=== PATIENT | female | born 2000 | race African-American/Black ===

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

== ENCOUNTER 2021-04-06 07:20 | Emergency (ER) | payer SELFPAY ==
[~2021-04-06] VITALS: Ht 157.5 cm; Wt 57.4 kg
[~2021-04-06 07:20] MED LIST: CIPR500T94 PO; NAPR-514 PO; NITR100C62 PO; OXYC1TAB15 PO
[2021-04-06 09:02] LABS: U PREG PATIENT POSITIVE (NEG)
[2021-04-06 09:04] LABS: BILIRUBIN,URINE NEGATIVE (NEG); CLARITY,URINE CLEAR; COLOR,URINE YELLOW; NITRITE,URINE NEGATIVE (NEG); PROTEIN,URINE 30 mg/dL (NEG-TRACE)
[2021-04-06 09:12] LABS: RBC,URINE >40 /HPF (0-2)
[2021-04-06 09:13] LABS: BACTERIA,URINE MODERATE /HPF (0-FEW)
[2021-04-06 09:50] LABS: BASO % 0 % (0-3); EOS % 0 % (0-3); HEMOGLOBIN 14.2 g/dL (12.0-15.5); LYMPH # 1.3 x10^3/uL (1.0-4.8); LYMPH % 10 % (24-48); MEAN CORPUSCULAR HEMOGLOBIN 30 pg (25-35); MEAN CORPUSCULAR HGB CONC 33 g/dL (31-37); MEAN CORPUSCULAR VOLUME 89 fL (79-100); MONO # 0.7 x10^3/uL (0.0-1.1); MONO % 5 % (0-9); NEUT # 10.4 x10^3/uL (1.8-7.7); NEUT % 84 % (31-73); PLATELET COUNT 219 x10^3/uL (140-400); RED BLOOD COUNT 4.82 x10^6/uL (3.50-5.40); WHITE BLOOD COUNT 12.4 x10^3/uL (4.0-11.0)
[2021-04-06 10:02] LABS: CALCIUM 9.3 mg/dL (8.5-10.1); CREATININE 0.6 mg/dL (0.6-1.0); GFR 152.7
[2021-04-06 10:07] LABS: PROTHROMBIN TIME PATIENT 13.7 SEC (11.7-14.0)
[2021-04-06 10:08] LABS: ALBUMIN 4.4 g/dL (3.4-5.0); ALBUMIN/GLOBULIN RATIO 1.2 (1.0-1.7); TOTAL BILIRUBIN 0.6 mg/dL (0.2-1.0); TOTAL PROTEIN 8.1 g/dL (6.4-8.2)
[2021-04-06 10:09] LABS: POTASSIUM 3.9 mmol/L (3.5-5.1)
--- NOTE | 2021-04-06 10:56 | PHYS DOC ---
Past Medical History Past Medical History: No Pertinent History Additional Past Medical Histor: ECTOPIC Past Surgical History: Other Additional Past Surgical Histo: ECTOPIC Smoking Status: Current Every Day Smoker Additional Information: VAPES Alcohol Use: None Drug Use: Marijuana General Adult EDM: Chief Complaint: ABDOMINAL PAIN HPI: HPI: 20 yo F (LMP 02/22/21) presents to the ed with c/o vaginal spotting that started yesterday with left-sided pelvic cramping. Reports history of right salpingectomy in 2018 due to a ruptured ectopic . Review of Systems: Review of Systems: Constitutional: Denies fever or chills. [] Eyes: Denies change in visual acuity. [] HENT: Denies nasal congestion or sore throat. [] Respiratory: Denies cough or shortness of breath. [] Cardiovascular: Denies chest pain or edema. [] GI: Denies bloody stools or diarrhea. [] : Denies dysuria or hematuria Musculoskeletal: Denies back pain or joint pain. [] Integument: Denies rash or diaphoresis Neurologic: Denies headache, focal weakness or sensory changes. [] Endocrine: Denies polyuria or polydipsia. [] Lymphatic: Denies swollen glands. [] Psychiatric: Denies depression or anxiety. [] Heart Score: C/O Chest Pain: No Risk Factors: Risk Factors: DM, Current or recent (<one month) smoker, HTN, HLP, family history of CAD, obesity. Risk Scores: Score 0 - 3: 2.5% MACE over next 6 weeks - Discharge Home Score 4 - 6: 20.3% MACE over next 6 weeks - Admit for Clinical Observation Score 7 - 10: 72.7% MACE over next 6 weeks - Early Invasive Strategies Allergies: Allergies: Allergies Coded Allergies Type Severity Reaction Last Updated Verified No Known Drug Allergies 09/13/16 No Physical Exam: PE: Constitutional: Well developed, well nourished, no acute distress, non-toxic appearance. HENT: Normocephalic, atraumatic, Eyes: EOMI, conjunctiva normal, no discharge. Neck: Normal range of motion, supple, Cardiovascular: S1/2 present, regular rhythm Lungs & Thorax: Speaking in full sentences, bilateral equal chest rise, no tachypnea or increased work of breathing Abdomen: soft, no tenderness, no rigidity or guarding-complaints of left-sided suprapubic pain Skin: Warm, dry, no erythema, no rash. [] Back: No tenderness, no CVA tenderness. [] Extremities: No tenderness, no cyanosis, no lower extremity edema Neurologic: Alert and oriented X 3, normal motor function, normal sensory funct ion, no focal deficits noted. [] Psychologic: Affect normal, judgement normal, mood normal. [] Pelvic: chaperoned, no external evidence on vaginal bleeding - US performed with dark discharge, no bright red vaginal bleeding Current Patient Data: Labs: Laboratory Tests Test 04/06/21 08:45 04/06/21 09:35 Urine Collection Type Unknown Urine Color Yellow Urine Clarity Clear Urine pH 7.0 (<5.0-8.0) Urine Specific [place] 1.025 (1.000-1.030) Urine Protein 30 mg/dL (NEG-TRACE) Urine Glucose (UA) Negative mg/dL (NEG) Urine Ketones (Stick) 40 mg/dL (NEG) Urine Blood Large (NEG) Urine Nitrite Negative (NEG) Urine Bilirubin Negative (NEG) Urine Urobilinogen Dipstick 1.0 mg/dL (0.2 mg/dL) Urine Leukocyte Esterase Small (NEG) Urine RBC >40 /HPF (0-2) Urine WBC 1-4 /HPF (0-4) Urine Squamous Epithelial Cells Mod /LPF Urine Bacteria Moderate /HPF (0-FEW) Urine Mucus Mod /LPF Urine Test Positive (NEG) White Blood Count 12.4 x10^3/uL (4.0-11.0) H Red Blood Count 4.82 x10^6/uL (3.50-5.40) Hemoglobin 14.2 g/dL (12.0-15.5) Hematocrit 43.0 % (36.0-47.0) Mean Corpuscular Volume 89 fL (79-100) Mean Corpuscular Hemoglobin 30 pg (25-35) Mean Corpuscular Hemoglobin Concent 33 g/dL (31-37) Red Cell Distribution Width 13.0 % (11.5-14.5) Platelet Count 219 x10^3/uL (140-400) Neutrophils (%) (Auto) 84 % (31-73) H Lymphocytes (%) (Auto) 10 % (24-48) L Monocytes (%) (Auto) 5 % (0-9) Eosinophils (%) (Auto) 0 % (0-3) Basophils (%) (Auto) 0 % (0-3) Neutrophils # (Auto) 10.4 x10^3/uL (1.8-7.7) H Lymphocytes # (Auto) 1.3 x10^3/uL (1.0-4.8) Monocytes # (Auto) 0.7 x10^3/uL (0.0-1.1) Eosinophils # (Auto) 0.0 x10^3/uL (0.0-0.7) Basophils # (Auto) 0.0 x10^3/uL (0.0-0.2) Prothrombin Time 13.7 SEC (11.7-14.0) Prothrombin Time INR 1.1 (0.8-1.1) Activated Partial Thromboplast Time 30 SEC (24-38) Maternal Serum HCG Beta Subunit 802 mIU/mL (0-5) H Sodium Level 138 mmol/L (136-145) Potassium Level 3.9 mmol/L (3.5-5.1) Chloride Level 103 mmol/L (98-107) Carbon Dioxide Level 23 mmol/L (21-32) Anion Gap 12 (6-14) Blood Urea Nitrogen 6 mg/dL (7-20) L Creatinine 0.6 mg/dL (0.6-1.0) Estimated GFR (Cockcroft-Gault) 152.7 BUN/Creatinine Ratio 10 (6-20) Glucose Level 88 mg/dL (70-99) Calcium Level 9.3 mg/dL (8.5-10.1) Total Bilirubin 0.6 mg/dL (0.2-1.0) Aspartate Amino Transferase (AST) 17 U/L (15-37) Alanine Aminotransferase (ALT) 14 U/L (14-59) Alkaline Phosphatase 51 U/L (46-116) Total Protein 8.1 g/dL (6.4-8.2) Albumin 4.4 g/dL (3.4-5.0) Albumin/Globulin Ratio 1.2 (1.0-1.7) Laboratory Tests 04/06/21 09:35 Laboratory Tests 04/06/21 09:35 Vital Signs: Vital Signs Date Time Temp Pulse Resp B/P (MAP) Pulse Ox O2 Delivery O2 Flow Rate FiO2 04/06/21 08:45 98.5 65 17 136/86 (103) 100 Room Air 98.5 EKG: EKG: [] Radiology/Procedures: Radiology/Procedures: IMAGING REPORT Signed PATIENT: GABY ORDONEZ DACCOUNT: [id number] : 2000 LOCATION: ER AGE: 20 SEX: F EXAM STATUS: REG ER ORD. PHYSICIAN: AUGIE LOOMIS DO REASON: vb in preg TECH NOTIFIED. NC PROCEDURE: OB <14 WKS W/TV EXAMINATION: US OB <14 WKS +TV (FIRST TRIMESTER PELVIC ULTRASOUND) CLINICAL HISTORY: Vaginal bleeding in TECHNIQUE: Sonography of the pelvis was performed by transabdominal and transvaginal techniques. COMPARISON: None. FINDINGS: Uterus: - Orientation: Anteverted - Size: 7.3 x 5.3 x 3.9 cm - Myometrium: Homogeneous echotexture - Endometrium: 10 mm in thickness. - Cervix: Unremarkable - Other: No intrauterine saclike structure visualized. Right Ovary: - Size: 2.8 x 2.4 x 1.7 cm - Normal sonographic appearance and blood flow. Left Ovary: - Size: 3.2 x 4.5 x 3.5 cm - 4.5 cm cyst. Normal blood flow. Pelvic Free Fluid: Small amount of free fluid, possibly physiologic. IMPRESSION: No intrauterine gestational sac visualized. 4.5 cm left ovarian cyst. Electronically signed by: Jamir Heller DO (04/06/2021 11:27 AM) [facility] DICTATED and SIGNED BY: JAMIR HELLER DO DATE: 04/06/21 [id number] 0 Course & Med Decision Making: Course & Med Decision Making Pertinent Labs and Imaging studies reviewed. (See chart for details) Concern for vaginal spotting in with no signs of anemia or ovarian torsion. Patient does have a large ovarian cyst. U/a concerning for early uti. No indication for RhoGam. Minimal vaginal bleeding on physical exam. On reevaluation patient reports she had one episode of nausea and vomiting in the emergency department and states she does feel slightly warm but no known fever. Given well-appearing exam I suspect symptoms are likely related more to an ascending UTI infection >> ovarian torsion (pt calm/resting and in no distress). Will discharge home with strict ED return precautions were given for worsening pain, heavy vaginal bleeding or syncope-patient understands she could still have an ectopic and this needs urgent follow-up with PMD and HEATER INSTALLER in 1 to 2 days for repeat beta hCG. Life-threatening processes were considered but are low suspicion at this time, given history, physical exam and ED workup. Pt was educated on all prescription medications and adverse effects. All patient's questions were answered and pt was stable at time of discharge. Life/limb-threatening differential includes but is not limited to, ectopic pr egnancy, septic , sepsis/infection (endometritis, sti/pid, cystitis, pyelonephritis, Jo Ann's gangrene or necrotizing fasciitis, abscess), ovarian torsion, ruptured hemorrhagic ovarian cyst, endometriosis, ureterolithiasis, thrombophlebitis, hemorrhage/DIC, organ prolapse, abdominal aortic aneurysm, mesenteric ischemia, neoplasm, bowel obstruction or surgical abdomen. I have spoken with the patient and/or caregivers. I explained the patient's condition, diagnoses and treatment plan based on the information available to me at this time. I have answered the patient and/or caregiver's questions and addressed any concerns. The patient and/or caregivers have a good understanding of patient's diagnosis, condition and treatment plan as can be expected at this point. Vital signs have been stable. Patient's condition is stable and appropriate for discharge from the emergency department. Patient will pursue further outpatient evaluation with primary care physician or other designated or consulting physician as outlined in the discharge instructions. The patient and/or caregivers are agreeable to this plan of care and follow-up instructions have been explained in detail. The patient and/or caregivers have received these instructions in written form and have expressed an understanding of the discharge instructions. The patient and/or caregivers are aware that any significant change of condition or worsening of symptoms should prompt immediate return to this or the closest emergency department or call to 911. Evan Disclaimer: Evan Disclaimer: This electronic medical record was generated, in whole or in part, using a voice recognition dictation system. Departure Departure Impression: Primary Impression: Vaginal bleeding during Additional Impressions: Urinary tract infection Cyst of left ovary Disposition: HOME / SELF CARE / HOMELESS Condition: STABLE Referrals: NO PCP (PCP) Follow-up with your primary care physician in 24 to 48 hours for repeat HCG level OR FOLLOW UP WITH FAMILY MEDICINE: [address] [place] [address] Patient Instructions: Ovarian Cyst, Urinary Tract Infection, Vaginal Bleeding During , First Trimester Additional Instructions: FOLLOW UP WITH HEATER INSTALLER: FOR DEFINITIVE MANAGEMENT (YOU NEED A REPEAT BETA-HCG IN 24-48 HOURS) of vaginal bleeding in first trimester , return to ed immediately for heavy vaginal bleeding or worsening pain [facility] [address], [address] [place] [address] EMERGENCY DEPARTMENT GENERAL DISCHARGE INSTRUCTIONS Thank you for coming to [facility] Emergency Department (ED) today and trusting us with you care. We trust that you had a positive experience in our Emergency Department. If you wish to speak to the department management, you may call the Director at [phone]. YOUR FOLLOW UP INSTRUCTIONS ARE FOLLOWS: 1. Do you have a private Doctor? If you do not have a private doctor, please ask for a resource list of physicians or clinics that may be able to assist you with follow up care. 2. The Emergency Physicain has interpreted your x-rays. The X-Ray specialist will also review them. If there is a change in the findings, you will be notified in 48 hours when at all possible. 3. A lab test or culture has been done, your results will be reviewed and you will be notified if you need a change in treatment. ADDITIONAL INSTRUCTIONS AND INFORMATION: 1. Your care today has been supervised by a physician who is specially trained in emergency care. Many problems require more than one evaluation for a complete diagnosis and treatment. We recommend that you schedule your follow up appointment as recommended to ensure complete treatment of you illness or injury. If you are unable to obtain follow up care and continue to have a problem, or if your condition worsens, we recommend that you return to the ED. 2. We are not able to safely determine your condition over the phone nor are we able to give sound medical advice over the phone. For these safety reasons, if you call for medical advice we will ask you to come to the ED for further evaluation. 3. If you have any questions regarding these discharge instructions please call the ED at [phone]. SAFETY INFORMATION: In the interest of safety, wellness, and injury prevention; we encourage you to wear your sealbelt, if you smoke; quite smoking, and we encourage family to use a protec tive helmet for bicycling and other sporting events that present an increased risk for head injury. IF YOUR SYMPTOMS WORSEN OR NEW SYMPTOMS DEVELOP, OR YOU HAVE CONCERNS ABOUT YOUR CONDITION; OR IF YOUR CONDITION WORSENS WHILE YOU ARE WAITING FOR YOUR FOLLOW UP APPOINTMENT; EITHER CONTACT YOUR PRIMARY CARE DOCTOR, THE PHYSICIAN WHOSE NAME AND NUMBER YOU WERE GIVEN, OR RETURN TO THE ED IMMEDIATELY. Scripts Ondansetron (ONDANSETRON ODT) 4 Mg Tab.rapdis 1 TAB PO PRN Q6-8HRS, #20 TAB Prov: AUGIE LOOMIS DO 04/06/21 Cefpodoxime Proxetil (CEFPODOXIME PROXETIL) 200 Mg Tablet 1 TAB PO BID for 10 Days, #20 TAB Prov: AUGIE LOOMIS DO 04/06/21 AUGIE LOOMIS DO Apr 06, 2021 10:56
--- NOTE | 2021-04-06 11:29 | RAD ---
EXAMINATION: US OB <14 WKS +TV (FIRST TRIMESTER PELVIC ULTRASOUND) CLINICAL HISTORY: Vaginal bleeding in TECHNIQUE: Sonography of the pelvis was performed by transabdominal and transvaginal techniques. COMPARISON: None. FINDINGS: Uterus: - Orientation: Anteverted - Size: 7.3 x 5.3 x 3.9 cm - Myometrium: Homogeneous echotexture - Endometrium: 10 mm in thickness. - Cervix: Unremarkable - Other: No intrauterine saclike structure visualized. Right Ovary: - Size: 2.8 x 2.4 x 1.7 cm - Normal sonographic appearance and blood flow. Left Ovary: - Size: 3.2 x 4.5 x 3.5 cm - 4.5 cm cyst. Normal blood flow. Pelvic Free Fluid: Small amount of free fluid, possibly physiologic. IMPRESSION: No intrauterine gestational sac visualized. 4.5 cm left ovarian cyst. Electronically signed by: Jamir Almonte DO (04/06/2021 11:27 AM) [facility]
[2021-04-06] MEDS ORDERED: CEFP200T PO (11:47)
[2021-04-06] MEDS ORDERED: ONDA4TAB12 PO (12:07)
[2021-04-06] MEDS ORDERED: KETOROLAC 15 MG/ML VIAL. IVP ONE (12:15)
[2021-04-06] MEDS ORDERED: ONDANSETRON PF 4 MG/2 ML VIAL. IVP ONE (12:15)
[2021-04-06] MEDS ORDERED: ACETAMINOPHEN 325 MG TABLET. PO ONE (12:45)
[2021-04-06 12:52] VITALS: BP 114/87
== END 2021-04-06 12:53 | disposition home or self-care (01) ==
LOC: ER 07:20
DX: O23.41 Unspecified infection of urinary tract in pregnancy, first trimester (principal); N39.0 Urinary tract infection, site not specified; Z3A.00 Weeks of gestation of pregnancy not specified; O34.81 Maternal care for other abnormalities of pelvic organs, first trimester; N83.202 Unspecified ovarian cyst, left side; F17.200 Nicotine dependence, unspecified, uncomplicated
CPT/HCPCS: 36415; 76801; 76817; 80053; 81001; 81025; 84702; 85025; 85610; 85730; 86850; 86900; 86901; 87086; 96374; 99284; J2405

== ENCOUNTER 2021-04-18 15:49 | Inpatient (IN) | payer SELFPAY ==
[~2021-04-18] VITALS: Ht 157.5 cm; Wt 56.4 kg
[~2021-04-18 15:49] MED LIST changes: +CEFP200T PO; +ONDA4TAB12 PO
--- NOTE | 2021-04-18 18:24 | PHYS DOC ---
Past Medical History Past Medical History: No Pertinent History Additional Past Medical Histor: ECTOPIC Past Surgical History: Other Additional Past Surgical Histo: ECTOPIC Smoking Status: Current Every Day Smoker Alcohol Use: None Drug Use: Marijuana General Adult EDM: Chief Complaint: VAGINAL BLEEDING HPI: HPI: Patient is a 20-year-old female presents to the emergency department for vaginal bleeding and . Patient reports that she was seen 1 week ago in this ER for left pelvic pain and spotting with vomiting. She states that she was told she has a urinary tract infection and a cyst on her left ovary. Patient also had a positive test at that time. Patient's last menstrual period was February 24. G2, P0 with a history of neck topic and fallopian tube removal. Patient reports that she continues to have spotting since that ER visit, she reports it is bright red. She denies saturating any pads, urinary complaints, pain, syncope, vomiting, fevers. Patient has not establish OB care at this time. She states that she has no concern for STDs. Review of Systems: Review of Systems: Constitutional: See HPI GI: See HPI : See HPI Neurologic: See HPI Heart Score: C/O Chest Pain: N/A Risk Factors: Risk Factors: DM, Current or recent (<one month) smoker, HTN, HLP, family history of CAD, obesity. Risk Scores: Score 0 - 3: 2.5% MACE over next 6 weeks - Discharge Home Score 4 - 6: 20.3% MACE over next 6 weeks - Admit for Clinical Observation Score 7 - 10: 72.7% MACE over next 6 weeks - Early Invasive Strategies Allergies: Allergies: Allergies Coded Allergies Type Severity Reaction Last Updated Verified No Known Drug Allergies 04/18/21 No Physical Exam: PE: Constitutional: Well developed, well nourished, no acute distress, non-toxic appearance. [] HENT: Normocephalic, atraumatic, bilateral external ears normal, oropharynx moist, no oral exudates, nose normal. [] Eyes: PERRL, EOMI, conjunctiva normal, no discharge. [] Neck: Normal range of motion, no tenderness, supple, no stridor. [] Cardiovascular:Heart rate regular rhythm, no murmur [] Lungs & Thorax: Bilateral breath sounds clear to auscultation [] Abdomen: Bowel sounds normal, soft, no tenderness, no masses, no pulsatile masses. [] Skin: Warm, dry, no erythema, no rash. [] Back: No tenderness, normal rom Extremities: No tenderness, no cyanosis, no clubbing, ROM intact, no edema. [] Neurologic: Alert and oriented X 3, normal motor function, normal sensory function, no focal deficits noted. [] Psychologic: Affect normal, judgement normal, mood normal. [] Current Patient Data: Labs: Laboratory Tests Test 04/18/21 18:05 04/18/21 20:40 Urine Collection Type Unknown Urine Color Radha Urine Clarity Cloudy Urine pH 5.5 Urine Specific [place] >=1.030 Urine Protein 30 mg/dL Urine Glucose (UA) Negative mg/dL Urine Ketones (Stick) >=80 mg/dL Urine Blood Large Urine Nitrite Negative Urine Bilirubin Small Urine Urobilinogen Dipstick 0.2 mg/dL Urine Leukocyte Esterase Small Urine RBC 3-5 /HPF Urine WBC 20-40 /HPF Urine Squamous Epithelial Cells Many /LPF Urine Amorphous Sediment Present /HPF Urine Bacteria Few /HPF Urine Mucus Marked /LPF Urine Test Positive White Blood Count 11.0 x10^3/uL Red Blood Count 4.75 x10^6/uL Hemoglobin 14.2 g/dL Hematocrit 43.6 % Mean Corpuscular Volume 92 fL Mean Corpuscular Hemoglobin 30 pg Mean Corpuscular Hemoglobin Concent 33 g/dL Red Cell Distribution Width 13.4 % Platelet Count 211 x10^3/uL Neutrophils (%) (Auto) 60 % Lymphocytes (%) (Auto) 30 % Monocytes (%) (Auto) 8 % Eosinophils (%) (Auto) 1 % Basophils (%) (Auto) 1 % Neutrophils # (Auto) 6.6 x10^3/uL Lymphocytes # (Auto) 3.3 x10^3/uL Monocytes # (Auto) 0.9 x10^3/uL Eosinophils # (Auto) 0.1 x10^3/uL Basophils # (Auto) 0.1 x10^3/uL Maternal Serum HCG Beta Subunit 269 mIU/mL Sodium Level 143 mmol/L Potassium Level 3.5 mmol/L Chloride Level 105 mmol/L Carbon Dioxide Level 22 mmol/L Anion Gap 16 Blood Urea Nitrogen 9 mg/dL Creatinine 0.8 mg/dL Estimated GFR (Cockcroft-Gault) 109.6 BUN/Creatinine Ratio 11 Glucose Level 76 mg/dL Calcium Level 9.4 mg/dL Total Bilirubin 0.5 mg/dL Aspartate Amino Transf (AST/SGOT) 10 U/L Alanine Aminotransferase (ALT/SGPT) 15 U/L Alkaline Phosphatase 52 U/L Total Protein 7.7 g/dL Albumin 4.4 g/dL Albumin/Globulin Ratio 1.3 EKG: EKG: [] Radiology/Procedures: Radiology/Procedures: []PROCEDURE: OB <14 WKS W/TV Exam: Ultrasound OB less than 14 weeks Indication: Vaginal bleeding Technique: Real-time grayscale and color Doppler images of the pelvis were obtained by the department resources representative. Comparisons: 04/06/2021 FINDINGS: Uterus measures 6.4 x 4.7 x 3.5 cm. Endometrium measures 6 mm in thickness. Ovary measures 2.5 x 2.2 x 1.3 cm. Left ovary measures 3.7 x 3.0 x 1.7 cm. There is a simple appearing cyst within the left ovary measuring up to 2.7 cm in diameter. There is a 3.2 x 2.4 x 1.6 cm heterogenous rounded structure within the left adnexa. Vascular flow identified in the ovaries bilaterally. No free fluid identified and pelvis. IMPRESSION: 1. Heterogenous structure at the left adnexa measuring up to 3.2 cm in diameter. This is nonspecific in etiology however given lack of intrauterine differential considerations include an ectopic . 2. No gestational sac, yolk sac or pole identified. Intrauterine pregnan cy is not confirmed. Recommend Correlation with serial beta hCG measurements and short-term follow-up ultrasound as indicated. FOR INTERNAL CODING PURPOSES Critical result: Findings discussed with ER provider at 04/18/2021 7:56 PM. RESULT CODE: (C) Electronically signed by: To Lawrence MD (04/18/2021 7:57 PM) [facility] Course & Med Decision Making: Course & Med Decision Making Pertinent Labs and Imaging studies reviewed. (See chart for details) Patient presents to the emergency department for vaginal bleeding in . Patient was seen 1 week ago and diagnosed with a urinary tract infection and a cyst on her left ovary. Patient reports that ever since being seen in the emergency department 1 week ago, her vaginal bleeding has not stopped. She has not established OB care yet. Her last menstrual period was February 24. I discussed performing a pelvic exam with patient and she stated that she did not want to have a pelvic exam because it worsened her bleeding last time she has no concern for STDs. CBC and CMP unremarkable. Patient is positive for UTI but is currently undergoing treatment for that. When patient was seen last week her beta-hCG was 82, on recheck it was 269. Ultrasound was performed that did not show a gestational sac or intrauterine but she does have a 3.2 cm mass on her left adnexa possibly an ectopic . I discussed these findings with Dr. Patel who advised me to give 50 mgM2 of methotrexate and have the patient admitted. I discussed patient's case with Dr. Calixto who agreed to admit the patient under his services for possible ectopic. Bridge orders placed at this time. Hank/ Evan Disclaimer: Evan Disclaimer: This electronic medical record was generated, in whole or in part, using a voice recognition dictation system. Departure Departure Impression: Primary Impression: Ectopic Qualified Codes: O00.202 - Left ovarian without intrauterine Disposition: ADMITTED INPATIENT Admitting Physician: LIZETTE Condition: STABLE Referrals: NO PCP (PCP) ROBERT BOSS [employer] CAREER MANAGER Apr 18, 2021 18:24
[2021-04-18 18:59] LABS: BILIRUBIN,URINE SMALL (NEG); CLARITY,URINE CLOUDY; COLOR,URINE AMBER; NITRITE,URINE NEGATIVE (NEG); PH,URINE 5.5 (<5.0-8.0); PROTEIN,URINE 30 mg/dL (NEG-TRACE); UROBILINOGEN,URINE 0.2 mg/dL (0.2 mg/dL)
[2021-04-18 19:12] LABS: AMORPHOUS SEDIMENT,UR PRESENT /HPF; BACTERIA,URINE FEW /HPF (0-FEW); WBC,URINE 20-40 /HPF (0-4)
[2021-04-18 19:15] LABS: U PREG PATIENT POSITIVE (NEG)
--- NOTE | 2021-04-18 19:59 | RAD ---
Exam: Ultrasound OB less than 14 weeks Indication: Vaginal bleeding Technique: Real-time grayscale and color Doppler images of the pelvis were obtained by the department principal examiner. Comparisons: 04/06/2021 FINDINGS: Uterus measures 6.4 x 4.7 x 3.5 cm. Endometrium measures 6 mm in thickness. Ovary measures 2.5 x 2.2 x 1.3 cm. Left ovary measures 3.7 x 3.0 x 1.7 cm. There is a simple appearing cyst within the left ovary measur ing up to 2.7 cm in diameter. There is a 3.2 x 2.4 x 1.6 cm heterogenous rounded structure within the left adnexa. Vascular flow identified in the ovaries bilaterally. No free fluid identified and pelvis. IMPRESSION: 1. Heterogenous structure at the left adnexa measuring up to 3.2 cm in diameter. This is nonspecific in etiology however given lack of intrauterine differential considerations include an ecto pic . 2. No gestational sac, yolk sac or pole identified. Intrauterine is not confirmed. R ecommend Correlation with serial beta hCG measurements and short-term follow-up ultrasound as indicat ed. FOR INTERNAL CODING PURPOSES Critical result: Findings discussed with ER provider at 04/18/2021 7:56 PM. RESULT CODE: (C) Electronically signed by: To Lawrence MD (04/18/2021 7:57 PM) [facility]
[2021-04-18 20:50] LABS: BASO # 0.1 x10^3/uL (0.0-0.2); BASO % 1 % (0-3); EOS # 0.1 x10^3/uL (0.0-0.7); EOS % 1 % (0-3); HEMATOCRIT 43.6 % (36.0-47.0); HEMOGLOBIN 14.2 g/dL (12.0-15.5); LYMPH # 3.3 x10^3/uL (1.0-4.8); LYMPH % 30 % (24-48); MEAN CORPUSCULAR HEMOGLOBIN 30 pg (25-35); MEAN CORPUSCULAR HGB CONC 33 g/dL (31-37); MEAN CORPUSCULAR VOLUME 92 fL (79-100); MONO # 0.9 x10^3/uL (0.0-1.1); MONO % 8 % (0-9); NEUT # 6.6 x10^3/uL (1.8-7.7); NEUT % 60 % (31-73); PLATELET COUNT 211 x10^3/uL (140-400); RED BLOOD COUNT 4.75 x10^6/uL (3.50-5.40); RED CELL DISTRIBUTION WIDTH 13.4 % (11.5-14.5)
[2021-04-18 20:55] LABS: CALCIUM 9.4 mg/dL (8.5-10.1); CREATININE 0.8 mg/dL (0.6-1.0); GFR 109.6; POTASSIUM 3.5 mmol/L (3.5-5.1)
[2021-04-18 21:02] LABS: ALBUMIN 4.4 g/dL (3.4-5.0); ALBUMIN/GLOBULIN RATIO 1.3 (1.0-1.7); TOTAL BILIRUBIN 0.5 mg/dL (0.2-1.0); TOTAL PROTEIN 7.7 g/dL (6.4-8.2)
[2021-04-18] MEDS ORDERED: METHOTREXATE SODIUM 50 MG/2 ML VIAL IM ONE (22:30)
[2021-04-18 22:45] VITALS: BP 121/71
[2021-04-19 05:37] VITALS: BP 118/68
[2021-04-19 09:47] LABS: BASO % 1 % (0-3); EOS # 0.1 x10^3/uL (0.0-0.7); EOS % 1 % (0-3); HEMATOCRIT 42.3 % (36.0-47.0); LYMPH % 27 % (24-48); MEAN CORPUSCULAR HEMOGLOBIN 30 pg (25-35); MEAN CORPUSCULAR HGB CONC 33 g/dL (31-37); MEAN CORPUSCULAR VOLUME 91 fL (79-100); MONO # 0.8 x10^3/uL (0.0-1.1); MONO % 11 % (0-9); NEUT # 4.5 x10^3/uL (1.8-7.7); NEUT % 61 % (31-73); PLATELET COUNT 214 x10^3/uL (140-400); RED BLOOD COUNT 4.66 x10^6/uL (3.50-5.40); RED CELL DISTRIBUTION WIDTH 12.9 % (11.5-14.5); WHITE BLOOD COUNT 7.4 x10^3/uL (4.0-11.0)
[2021-04-19 10:00] VITALS: BP 109/71
[2021-04-19 10:08] LABS: ALBUMIN 4.1 g/dL (3.4-5.0); ALBUMIN/GLOBULIN RATIO 1.2 (1.0-1.7); CALCIUM 9.2 mg/dL (8.5-10.1); CREATININE 0.8 mg/dL (0.6-1.0); GFR 109.6; POTASSIUM 3.8 mmol/L (3.5-5.1); TOTAL BILIRUBIN 0.8 mg/dL (0.2-1.0); TOTAL PROTEIN 7.6 g/dL (6.4-8.2)
--- NOTE | 2021-04-19 11:28 | PDOC2 ---
CONSULT Date of Consult Date of Consult DATE: 04/19/21 TIME: 11:27 Reason for Consult Reason for Consult: Possible ectopic History of Present Illness Reason for Visit: 20y with LMP of 02/24/21 who presented to the ER with VB. The pt had been bleeding for the last wk. She has had no pain. The pt presented on 04/06/21 with VB plus pain. On that date she was found to have a quant of 802. An u/s on that date revealed a 4.5 cm left ovarian cyst. The pt was to f/u and have a repeat quant in 48 hrs. When the pt returned last night she was found to have a quant of 269. Her u/s was repeated an revealed no IUP and the left cyst now measuring 3.2 cm. The ER called with the results to determine a plan. The quant on this admission was reported as 2,000+. Based on that result, with the pts h/o a previous salpingectomy for an ectopic it was thought that this was an ectopic too. With no IUP with a quant of 2,000. She was given 50mg IM of MTX, not the therapeutic dose for an ectopic of 50mg/m2. After reviewing the information this am, her actual quant has decreased over the visits. This makes it more likely that this is actually an AB. The pt was informed of this. In 2018 she underwent a diagnostic laparoscopy with right salpingectomy and evacuation of Hemoperitoneum. Her left was reported as looking nml. The pt was informed that her risk of ectopic was higher than the general population, but still had a good chance of having a viable with the next . PMH: Denies PSH: Right salpingectomy Meds: None All: NKDA OBHx: ectopic x 1 SH: no tob, no EtOH FH: noncontributory Current Problem List Problem List Problems Medical Problems: (1) Ectopic Status: Acute Current Medications Current Medications Current Medications Methotrexate (Methotrexate Sodium) 50 mg 1X ONCE IM Last administered on 04/18/21at 22:14; Start 04/18/21 at 22:30; Stop 04/18/21 at 22:31; Status DC Active Scripts Active Ondansetron Odt (Ondansetron) 4 Mg Tab.rapdis 1 Tab PO PRN Q6-8HRS Cefpodoxime Proxetil 200 Mg Tablet 1 Tab PO BID 10 Days Naproxen 500 Mg Tablet 500 Mg PO BID Percocet 5-325 Mg Tablet (Oxycodone/Acetaminophen) 1 Each Tablet 1-2 Tab PO Q4-6HRS Reported No Known Medications Prior To Admisstion (Info) Each 1 Each MC Allergies Allergies: Coded Allergies: No Known Drug Allergies (Unverified , 04/18/21) Physical Exam General: Alert, Oriented X3, Cooperative, No acute distress HEENT: PERRLA, Mucous membr. moist/pink Lungs: Clear to auscultation, Normal air movement Heart: Regular rate, Normal S1, Normal S2, No murmurs Abdomen: Normal bowel sounds, Soft, No tenderness, No hepatosplenomegaly, No masses Extremities: No clubbing, No cyanosis, No edema, Normal pulses, No tenderness/swelling Neuro: Normal gait, Normal speech, Normal tone, Sensation intact, Reflexes 2+ Psych/Mental Status: Mental status NL, Mood NL Vitals VITALS Vital Signs Date Time Temp Pulse Resp B/P (MAP) Pulse Ox O2 Delivery O2 Flow Rate FiO2 04/19/21 10:00 98.6 68 18 109/71 (84) 100 Room Air 98.6 Labs Labs Laboratory Tests Test 04/18/21 18:05 04/18/21 20:40 04/19/21 08:15 Urine Collection Type Unknown Urine Color Radha Urine Clarity Cloudy Urine pH 5.5 (<5.0-8.0) Urine Specific [place] >=1.030 (1.000-1.030) Urine Protein 30 mg/dL (NEG-TRACE) Urine Glucose (UA) Negative mg/dL (NEG) Urine Ketones (Stick) >=80 mg/dL (NEG) Urine Blood Large (NEG) Urine Nitrite Negative (NEG) Urine Bilirubin Small (NEG) Urine Urobilinogen Dipstick 0.2 mg/dL (0.2 mg/dL) Urine Leukocyte Esterase Small (NEG) Urine RBC 3-5 /HPF (0-2) Urine WBC 20-40 /HPF (0-4) Urine Squamous Epithelial Cells Many /LPF Urine Amorphous Sediment Present /HPF Urine Bacteria Few /HPF (0-FEW) Urine Mucus Marked /LPF Urine Test Positive (NEG) White Blood Count 11.0 x10^3/uL (4.0-11.0) 7.4 x10^3/uL (4.0-11.0) Red Blood Count 4.75 x10^6/uL (3.50-5.40) 4.66 x10^6/uL (3.50-5.40) Hemoglobin 14.2 g/dL (12.0-15.5) 14.0 g/dL (12.0-15.5) Hematocrit 43.6 % (36.0-47.0) 42.3 % (36.0-47.0) Mean Corpuscular Volume 92 fL (79-100) 91 fL (79-100) Mean Corpuscular Hemoglobin 30 pg (25-35) 30 pg (25-35) Mean Corpuscular Hemoglobin Concent 33 g/dL (31-37) 33 g/dL (31-37) Red Cell Distribution Width 13.4 % (11.5-14.5) 12.9 % (11.5-14.5) Platelet Count 211 x10^3/uL (140-400) 214 x10^3/uL (140-400) Neutrophils (%) (Auto) 60 % (31-73) 61 % (31-73) Lymphocytes (%) (Auto) 30 % (24-48) 27 % (24-48) Monocytes (%) (Auto) 8 % (0-9) 11 % (0-9) Eosinophils (%) (Auto) 1 % (0-3) 1 % (0-3) Basophils (%) (Auto) 1 % (0-3) 1 % (0-3) Neutrophils # (Auto) 6.6 x10^3/uL (1.8-7.7) 4.5 x10^3/uL (1.8-7.7) Lymphocytes # (Auto) 3.3 x10^3/uL (1.0-4.8) 2.0 x10^3/uL (1.0-4.8) Monocytes # (Auto) 0.9 x10^3/uL (0.0-1.1) 0.8 x10^3/uL (0.0-1.1) Eosinophils # (Auto) 0.1 x10^3/uL (0.0-0.7) 0.1 x10^3/uL (0.0-0.7) Basophils # (Auto) 0.1 x10^3/uL (0.0-0.2) 0.0 x10^3/uL (0.0-0.2) Maternal Serum HCG Beta Subunit 269 mIU/mL (0-5) Sodium Level 143 mmol/L (136-145) 142 mmol/L (136-145) Potassium Level 3.5 mmol/L (3.5-5.1) 3.8 mmol/L (3.5-5.1) Chloride Level 105 mmol/L (98-107) 105 mmol/L (98-107) Carbon Dioxide Level 22 mmol/L (21-32) 25 mmol/L (21-32) Anion Gap 16 (6-14) 12 (6-14) Blood Urea Nitrogen 9 mg/dL (7-20) 10 mg/dL (7-20) Creatinine 0.8 mg/dL (0.6-1.0) 0.8 mg/dL (0.6-1.0) Estimated GFR (Cockcroft-Gault) 109.6 109.6 BUN/Creatinine Ratio 11 (6-20) 13 (6-20) Glucose Level 76 mg/dL (70-99) 75 mg/dL (70-99) Calcium Level 9.4 mg/dL (8.5-10.1) 9.2 mg/dL (8.5-10.1) Total Bilirubin 0.5 mg/dL (0.2-1.0) 0.8 mg/dL (0.2-1.0) Aspartate Amino Transf (AST/SGOT) 10 U/L (15-37) 10 U/L (15-37) Alanine Aminotransferase (ALT/SGPT) 15 U/L (14-59) 15 U/L (14-59) Alkaline Phosphatase 52 U/L (46-116) 46 U/L (46-116) Total Protein 7.7 g/dL (6.4-8.2) 7.6 g/dL (6.4-8.2) Albumin 4.4 g/dL (3.4-5.0) 4.1 g/dL (3.4-5.0) Albumin/Globulin Ratio 1.3 (1.0-1.7) 1.2 (1.0-1.7) Laboratory Tests Test 04/18/21 18:05 04/18/21 20:40 04/19/21 08:15 Urine Collection Type Unknown Urine Color Radha Urine Clarity Cloudy Urine pH 5.5 (<5.0-8.0) Urine Specific [place] >=1.030 (1.000-1.030) Urine Protein 30 mg/dL (NEG-TRACE) Urine Glucose (UA) Negative mg/dL (NEG) Urine Ketones (Stick) >=80 mg/dL (NEG) Urine Blood Large (NEG) Urine Nitrite Negative (NEG) Urine Bilirubin Small (NEG) Urine Urobilinogen Dipstick 0.2 mg/dL (0.2 mg/dL) Urine Leukocyte Esterase Small (NEG) Urine RBC 3-5 /HPF (0-2) Urine WBC 20-40 /HPF (0-4) Urine Squamous Epithelial Cells Many /LPF Urine Amorphous Sediment Present /HPF Urine Bacteria Few /HPF (0-FEW) Urine Mucus Marked /LPF Urine Test Positive (NEG) White Blood Count 11.0 x10^3/uL (4.0-11.0) 7.4 x10^3/uL (4.0-11.0) Red Blood Count 4.75 x10^6/uL (3.50-5.40) 4.66 x10^6/uL (3.50-5.40) Hemoglobin 14.2 g/dL (12.0-15.5) 14.0 g/dL (12.0-15.5) Hematocrit 43.6 % (36.0-47.0) 42.3 % (36.0-47.0) Mean Corpuscular Volume 92 fL (79-100) 91 fL (79-100) Mean Corpuscular Hemoglobin 30 pg (25-35) 30 pg (25-35) Mean Corpuscular Hemoglobin Concent 33 g/dL (31-37) 33 g/dL (31-37) Red Cell Distribution Width 13.4 % (11.5-14.5) 12.9 % (11.5-14.5) Platelet Count 211 x10^3/uL (140-400) 214 x10^3/uL (140-400) Neutrophils (%) (Auto) 60 % (31-73) 61 % (31-73) Lymphocytes (%) (Auto) 30 % (24-48) 27 % (24-48) Monocytes (%) (Auto) 8 % (0-9) 11 % (0-9) Eosinophils (%) (Auto) 1 % (0-3) 1 % (0-3) Basophils (%) (Auto) 1 % (0-3) 1 % (0-3) Neutrophils # (Auto) 6.6 x10^3/uL (1.8-7.7) 4.5 x10^3/uL (1.8-7.7) Lymphocytes # (Auto) 3.3 x10^3/uL (1.0-4.8) 2.0 x10^3/uL (1.0-4.8) Monocytes # (Auto) 0.9 x10^3/uL (0.0-1.1) 0.8 x10^3/uL (0.0-1.1) Eosinophils # (Auto) 0.1 x10^3/uL (0.0-0.7) 0.1 x10^3/uL (0.0-0.7) Basophils # (Auto) 0.1 x10^3/uL (0.0-0.2) 0.0 x10^3/uL (0.0-0.2) Maternal Serum HCG Beta Subunit 269 mIU/mL (0-5) Sodium Level 143 mmol/L (136-145) 142 mmol/L (136-145) Potassium Level 3.5 mmol/L (3.5-5.1) 3.8 mmol/L (3.5-5.1) Chloride Level 105 mmol/L (98-107) 105 mmol/L (98-107) Carbon Dioxide Level 22 mmol/L (21-32) 25 mmol/L (21-32) Anion Gap 16 (6-14) 12 (6-14) Blood Urea Nitrogen 9 mg/dL (7-20) 10 mg/dL (7-20) Creatinine 0.8 mg/dL (0.6-1.0) 0.8 mg/dL (0.6-1.0) Estimated GFR (Cockcroft-Gault) 109.6 109.6 BUN/Creatinine Ratio 11 (6-20) 13 (6-20) Glucose Level 76 mg/dL (70-99) 75 mg/dL (70-99) Calcium Level 9.4 mg/dL (8.5-10.1) 9.2 mg/dL (8.5-10.1) Total Bilirubin 0.5 mg/dL (0.2-1.0) 0.8 mg/dL (0.2-1.0) Aspartate Amino Transf (AST/SGOT) 10 U/L (15-37) 10 U/L (15-37) Alanine Aminotransferase (ALT/SGPT) 15 U/L (14-59) 15 U/L (14-59) Alkaline Phosphatase 52 U/L (46-116) 46 U/L (46-116) Total Protein 7.7 g/dL (6.4-8.2) 7.6 g/dL (6.4-8.2) Albumin 4.4 g/dL (3.4-5.0) 4.1 g/dL (3.4-5.0) Albumin/Globulin Ratio 1.3 (1.0-1.7) 1.2 (1.0-1.7) Assessment/Plan Assessment/Plan Assessment: 20y with LMP of 02/24/21 with VB Recommendations: 1.) Positive test based on decreasing quant this is a nonviable , most likely an AB. The pt was given a subtherapeutic dose of MTX for thoughts that this may be an ectopic. Pt w/o pain, so should be able to be d/howie with outpt f/u. 2.) H/o ectopic - Right salpingectomy 3.) Left ovarian cyst decreasing in size, no intervention necessary 4.) D/c home ORLIN GANDHI MD Apr 19, 2021 11:28
[2021-04-19] MEDS ORDERED: PNV1TABL31 PO (11:29)
--- NOTE | 2021-04-19 11:39 | PDOC1 ---
History and Physical Date of Admission Date of Admission DATE: 04/19/21 TIME: 11:30 Source Source: Chart review, Patient History of Present Illness History of Present Illness was in ER for bleeding , had Positive test at that time, has still been bleeding, admit for such, 3cm mas seen on Admit on US HCG quant giogn down Past Medical History Cardiovascular: No pertinent hx Pulmonary: No pertinent hx GI: No pertinent hx Heme/Onc: No pertinent hx Hepatobiliary: No pertinent hx Psych: No pertinent hx Past Surgical History Past Surgical History: Other (ectopic) Social History Smoke: No ALCOHOL: rare Current Problem List Problem List Problems Medical Problems: (1) Ectopic Status: Acute Current Medications Current Medications Current Medications Methotrexate (Methotrexate Sodium) 50 mg 1X ONCE IM Last administered on 04/18/21at 22:14; Start 04/18/21 at 22:30; Stop 04/18/21 at 22:31; Status DC Active Scripts Active Plus Tablet (Pnv With Ca,No.72/Iron/Fa) 1 Each Tablet 1 Tab PO DAILY 100 Days Reported No Known Medications Prior To Admisstion (Info) Each 1 Each Allergies Allergies: Coded Allergies: No Known Drug Allergies (Unverified , 04/18/21) ROS General: No: Chills, Night Sweats, Fatigue, Malaise, Appetite, Other PSYCHOLOGICAL ROS: No: Anxiety, Behavioral Disorder, Concentration difficultie, Decreased libido, Depression, Disorientation, Hallucinations, Hostility, Irritablity, Memory difficulties, Mood Swings, Obsessive thoughts, Physical abuse, Sexual abuse, Sleep disturbances, Suicidal ideation, Other Eyes: No Blurry vision, No Decreased vision, No Double vision, No Dry eyes, No Excessive tearing, No Eye Pain, No Itchy Eyes, No Loss of vision, No Photophobia, No Scotomata, No Uses contacts, No Uses glasses, No Other HEENT: No: Heacaches, Visual Changes, Hearing change, Nasal congestion, Nasal discharge, Oral lesions, Sinus pain, Sore Throat, Epistaxis, Sneezing, Snoring, Tinnitus, Vertigo, Vocal changes, Other Respiratory: No: Cough, Hemoptysis, Orthopnea, Pleuritic Pain, Shortness of breath, SOB with excertion, Sputum Changes, Stridor, Tachypnea, Wheezing, Other Cardiovascular: No Chest Pain, No Palpitations, No Orthopnea, No Paroxysmal Noc. Dyspnea, No Edema, No Lt Headedness, No Other Gastrointestinal: No Nausea, No Vomiting, No Abdominal Pain, No Diarrhea, No Constipation, No Melena, No Hematochezia, No Other Genitourinary: YES Other (bleeding); No Dysuria, No Frequency, No Incontinence, No Hematuria, No Retention, No Discharge, No Urgency, No Pain, No Flank Pain, No , No , No , No , No , No , No Musculoskeletal: No Gait Disturbance, No Joint Pain, No Joint Stiffness, No Joint Swelling, No Muscle Pain, No Muscular Weakness, No Pain In:, No Swelling In:, No Other Neurological: No Behavorial Changes, No Bowel/Bladder ControlChng, No Confusion, No Dizziness, No Gait Disturbance, No Headaches, No Impaired Coord/balance, No Memory Loss, No Numbness/Tingling, No Seizures, No Speech Problems, No Tremors, No Visual Changes, No Weakness, No Other Skin: No Dry Skin, No Eczema, No Hair Changes, No Lumps, No Mole Changes, No Mottling, No Nail Changes, No Pruritus, No Rash, No Skin Lesion Changes, No Other, No Acne Physical Exam General: Alert HEENT: Atraumatic Lungs: Clear to auscultation Heart: S1S2 Extremities: No clubbing, No edema Skin: No rashes, No significant lesion Neuro: Normal speech, Normal tone Psych/Mental Status: Mental status NL, Mood NL Vitals Vitals Vital Signs Date Time Temp Pulse Resp B/P (MAP) Pulse Ox O2 Delivery O2 Flow Rate FiO2 04/19/21 10:00 98.6 68 18 109/71 (84) 100 Room Air 98.6 Labs Labs Laboratory Tests Test 04/18/21 18:05 04/18/21 20:40 04/19/21 08:15 Urine Collection Type Unknown Urine Color Radha Urine Clarity Cloudy Urine pH 5.5 (<5.0-8.0) Urine Specific [place] >=1.030 (1.000-1.030) Urine Protein 30 mg/dL (NEG-TRACE) Urine Glucose (UA) Negative mg/dL (NEG) Urine Ketones (Stick) >=80 mg/dL (NEG) Urine Blood Large (NEG) Urine Nitrite Negative (NEG) Urine Bilirubin Small (NEG) Urine Urobilinogen Dipstick 0.2 mg/dL (0.2 mg/dL) Urine Leukocyte Esterase Small (NEG) Urine RBC 3-5 /HPF (0-2) Urine WBC 20-40 /HPF (0-4) Urine Squamous Epithelial Cells Many /LPF Urine Amorphous Sediment Present /HPF Urine Bacteria Few /HPF (0-FEW) Urine Mucus Marked /LPF Urine Test Positive (NEG) White Blood Count 11.0 x10^3/uL (4.0-11.0) 7.4 x10^3/uL (4.0-11.0) Red Blood Count 4.75 x10^6/uL (3.50-5.40) 4.66 x10^6/uL (3.50-5.40) Hemoglobin 14.2 g/dL (12.0-15.5) 14.0 g/dL (12.0-15.5) Hematocrit 43.6 % (36.0-47.0) 42.3 % (36.0-47.0) Mean Corpuscular Volume 92 fL (79-100) 91 fL (79-100) Mean Corpuscular Hemoglobin 30 pg (25-35) 30 pg (25-35) Mean Corpuscular Hemoglobin Concent 33 g/dL (31-37) 33 g/dL (31-37) Red Cell Distribution Width 13.4 % (11.5-14.5) 12.9 % (11.5-14.5) Platelet Count 211 x10^3/uL (140-400) 214 x10^3/uL (140-400) Neutrophils (%) (Auto) 60 % (31-73) 61 % (31-73) Lymphocytes (%) (Auto) 30 % (24-48) 27 % (24-48) Monocytes (%) (Auto) 8 % (0-9) 11 % (0-9) Eosinophils (%) (Auto) 1 % (0-3) 1 % (0-3) Basophils (%) (Auto) 1 % (0-3) 1 % (0-3) Neutrophils # (Auto) 6.6 x10^3/uL (1.8-7.7) 4.5 x10^3/uL (1.8-7.7) Lymphocytes # (Auto) 3.3 x10^3/uL (1.0-4.8) 2.0 x10^3/uL (1.0-4.8) Monocytes # (Auto) 0.9 x10^3/uL (0.0-1.1) 0.8 x10^3/uL (0.0-1.1) Eosinophils # (Auto) 0.1 x10^3/uL (0.0-0.7) 0.1 x10^3/uL (0.0-0.7) Basophils # (Auto) 0.1 x10^3/uL (0.0-0.2) 0.0 x10^3/uL (0.0-0.2) Maternal Serum HCG Beta Subunit 269 mIU/mL (0-5) Sodium Level 143 mmol/L (136-145) 142 mmol/L (136-145) Potassium Level 3.5 mmol/L (3.5-5.1) 3.8 mmol/L (3.5-5.1) Chloride Level 105 mmol/L (98-107) 105 mmol/L (98-107) Carbon Dioxide Level 22 mmol/L (21-32) 25 mmol/L (21-32) Anion Gap 16 (6-14) 12 (6-14) Blood Urea Nitrogen 9 mg/dL (7-20) 10 mg/dL (7-20) Creatinine 0.8 mg/dL (0.6-1.0) 0.8 mg/dL (0.6-1.0) Estimated GFR (Cockcroft-Gault) 109.6 109.6 BUN/Creatinine Ratio 11 (6-20) 13 (6-20) Glucose Level 76 mg/dL (70-99) 75 mg/dL (70-99) Calcium Level 9.4 mg/dL (8.5-10.1) 9.2 mg/dL (8.5-10.1) Total Bilirubin 0.5 mg/dL (0.2-1.0) 0.8 mg/dL (0.2-1.0) Aspartate Amino Transf (AST/SGOT) 10 U/L (15-37) 10 U/L (15-37) Alanine Aminotransferase (ALT/SGPT) 15 U/L (14-59) 15 U/L (14-59) Alkaline Phosphatase 52 U/L (46-116) 46 U/L (46-116) Total Protein 7.7 g/dL (6.4-8.2) 7.6 g/dL (6.4-8.2) Albumin 4.4 g/dL (3.4-5.0) 4.1 g/dL (3.4-5.0) Albumin/Globulin Ratio 1.3 (1.0-1.7) 1.2 (1.0-1.7) Laboratory Tests Test 04/18/21 18:05 04/18/21 20:40 04/19/21 08:15 Urine Collection Type Unknown Urine Color Radha Urine Clarity Cloudy Urine pH 5.5 (<5.0-8.0) Urine Specific [place] >=1.030 (1.000-1.030) Urine Protein 30 mg/dL (NEG-TRACE) Urine Glucose (UA) Negative mg/dL (NEG) Urine Ketones (Stick) >=80 mg/dL (NEG) Urine Blood Large (NEG) Urine Nitrite Negative (NEG) Urine Bilirubin Small (NEG) Urine Urobilinogen Dipstick 0.2 mg/dL (0.2 mg/dL) Urine Leukocyte Esterase Small (NEG) Urine RBC 3-5 /HPF (0-2) Urine WBC 20-40 /HPF (0-4) Urine Squamous Epithelial Cells Many /LPF Urine Amorphous Sediment Present /HPF Urine Bacteria Few /HPF (0-FEW) Urine Mucus Marked /LPF Urine Test Positive (NEG) White Blood Count 11.0 x10^3/uL (4.0-11.0) 7.4 x10^3/uL (4.0-11.0) Red Blood Count 4.75 x10^6/uL (3.50-5.40) 4.66 x10^6/uL (3.50-5.40) Hemoglobin 14.2 g/dL (12.0-15.5) 14.0 g/dL (12.0-15.5) Hematocrit 43.6 % (36.0-47.0) 42.3 % (36.0-47.0) Mean Corpuscular Volume 92 fL (79-100) 91 fL (79-100) Mean Corpuscular Hemoglobin 30 pg (25-35) 30 pg (25-35) Mean Corpuscular Hemoglobin Concent 33 g/dL (31-37) 33 g/dL (31-37) Red Cell Distribution Width 13.4 % (11.5-14.5) 12.9 % (11.5-14.5) Platelet Count 211 x10^3/uL (140-400) 214 x10^3/uL (140-400) Neutrophils (%) (Auto) 60 % (31-73) 61 % (31-73) Lymphocytes (%) (Auto) 30 % (24-48) 27 % (24-48) Monocytes (%) (Auto) 8 % (0-9) 11 % (0-9) Eosinophils (%) (Auto) 1 % (0-3) 1 % (0-3) Basophils (%) (Auto) 1 % (0-3) 1 % (0-3) Neutrophils # (Auto) 6.6 x10^3/uL (1.8-7.7) 4.5 x10^3/uL (1.8-7.7) Lymphocytes # (Auto) 3.3 x10^3/uL (1.0-4.8) 2.0 x10^3/uL (1.0-4.8) Monocytes # (Auto) 0.9 x10^3/uL (0.0-1.1) 0.8 x10^3/uL (0.0-1.1) Eosinophils # (Auto) 0.1 x10^3/uL (0.0-0.7) 0.1 x10^3/uL (0.0-0.7) Basophils # (Auto) 0.1 x10^3/uL (0.0-0.2) 0.0 x10^3/uL (0.0-0.2) Maternal Serum HCG Beta Subunit 269 mIU/mL (0-5) Sodium Level 143 mmol/L (136-145) 142 mmol/L (136-145) Potassium Level 3.5 mmol/L (3.5-5.1) 3.8 mmol/L (3.5-5.1) Chloride Level 105 mmol/L (98-107) 105 mmol/L (98-107) Carbon Dioxide Level 22 mmol/L (21-32) 25 mmol/L (21-32) Anion Gap 16 (6-14) 12 (6-14) Blood Urea Nitrogen 9 mg/dL (7-20) 10 mg/dL (7-20) Creatinine 0.8 mg/dL (0.6-1.0) 0.8 mg/dL (0.6-1.0) Estimated GFR (Cockcroft-Gault) 109.6 109.6 BUN/Creatinine Ratio 11 (6-20) 13 (6-20) Glucose Level 76 mg/dL (70-99) 75 mg/dL (70-99) Calcium Level 9.4 mg/dL (8.5-10.1) 9.2 mg/dL (8.5-10.1) Total Bilirubin 0.5 mg/dL (0.2-1.0) 0.8 mg/dL (0.2-1.0) Aspartate Amino Transf (AST/SGOT) 10 U/L (15-37) 10 U/L (15-37) Alanine Aminotransferase (ALT/SGPT) 15 U/L (14-59) 15 U/L (14-59) Alkaline Phosphatase 52 U/L (46-116) 46 U/L (46-116) Total Protein 7.7 g/dL (6.4-8.2) 7.6 g/dL (6.4-8.2) Albumin 4.4 g/dL (3.4-5.0) 4.1 g/dL (3.4-5.0) Albumin/Globulin Ratio 1.3 (1.0-1.7) 1.2 (1.0-1.7) VTE Prophylaxis Ordered VTE Prophylaxis Devices: No VTE Pharmacological Prophylaxi: No Assessment/Plan Assessment/Plan Positive test - decreasing - misscarriabe prior H/o ectopic - Right salpingectomy Justifications for Admission Other Justification ОЛЬГА TELLES MD Apr 19, 2021 11:39
[2021-04-19 12:45] VITALS: BP 109/76
--- NOTE | 2021-04-19 16:16 | PDOC3 ---
Discharge Summary Visit Information Date of Admission: Apr 18, 2021 Date of Discharge: Apr 19, 2021 Final Diagnosis Positive test miscarried, nonviable , H/o ectopic - Right salpingectomy Left ovarian cyst decreasing in size, no intervention necessary Problems Medical Problems: (1) Ectopic Status: Acute Brief Hospital Course Allergies Allergies Coded Allergies Type Severity Reaction Last Updated Verified No Known Drug Allergies 04/18/21 No Vital Signs Vital Signs Date Time Temp Pulse Resp B/P (MAP) Pulse Ox O2 Delivery O2 Flow Rate FiO2 04/19/21 12:45 98.7 65 18 109/76 (87) 99 Room Air 98.7 Lab Results Laboratory Tests Test 04/18/21 18:05 04/18/21 20:40 04/19/21 08:15 Urine Collection Type Unknown Urine Color Radha Urine Clarity Cloudy Urine pH 5.5 (<5.0-8.0) Urine Specific [place] >=1.030 (1.000-1.030) Urine Protein 30 mg/dL (NEG-TRACE) Urine Glucose (UA) Negative mg/dL (NEG) Urine Ketones (Stick) >=80 mg/dL (NEG) Urine Blood Large (NEG) Urine Nitrite Negative (NEG) Urine Bilirubin Small (NEG) Urine Urobilinogen Dipstick 0.2 mg/dL (0.2 mg/dL) Urine Leukocyte Esterase Small (NEG) Urine RBC 3-5 /HPF (0-2) Urine WBC 20-40 /HPF (0-4) Urine Squamous Epithelial Cells Many /LPF Urine Amorphous Sediment Present /HPF Urine Bacteria Few /HPF (0-FEW) Urine Mucus Marked /LPF Urine Test Positive (NEG) White Blood Count 11.0 x10^3/uL (4.0-11.0) 7.4 x10^3/uL (4.0-11.0) Red Blood Count 4.75 x10^6/uL (3.50-5.40) 4.66 x10^6/uL (3.50-5.40) Hemoglobin 14.2 g/dL (12.0-15.5) 14.0 g/dL (12.0-15.5) Hematocrit 43.6 % (36.0-47.0) 42.3 % (36.0-47.0) Mean Corpuscular Volume 92 fL (79-100) 91 fL (79-100) Mean Corpuscular Hemoglobin 30 pg (25-35) 30 pg (25-35) Mean Corpuscular Hemoglobin Concent 33 g/dL (31-37) 33 g/dL (31-37) Red Cell Distribution Width 13.4 % (11.5-14.5) 12.9 % (11.5-14.5) Platelet Count 211 x10^3/uL (140-400) 214 x10^3/uL (140-400) Neutrophils (%) (Auto) 60 % (31-73) 61 % (31-73) Lymphocytes (%) (Auto) 30 % (24-48) 27 % (24-48) Monocytes (%) (Auto) 8 % (0-9) 11 % (0-9) Eosinophils (%) (Auto) 1 % (0-3) 1 % (0-3) Basophils (%) (Auto) 1 % (0-3) 1 % (0-3) Neutrophils # (Auto) 6.6 x10^3/uL (1.8-7.7) 4.5 x10^3/uL (1.8-7.7) Lymphocytes # (Auto) 3.3 x10^3/uL (1.0-4.8) 2.0 x10^3/uL (1.0-4.8) Monocytes # (Auto) 0.9 x10^3/uL (0.0-1.1) 0.8 x10^3/uL (0.0-1.1) Eosinophils # (Auto) 0.1 x10^3/uL (0.0-0.7) 0.1 x10^3/uL (0.0-0.7) Basophils # (Auto) 0.1 x10^3/uL (0.0-0.2) 0.0 x10^3/uL (0.0-0.2) Maternal Serum HCG Beta Subunit 269 mIU/mL (0-5) Sodium Level 143 mmol/L (136-145) 142 mmol/L (136-145) Potassium Level 3.5 mmol/L (3.5-5.1) 3.8 mmol/L (3.5-5.1) Chloride Level 105 mmol/L (98-107) 105 mmol/L (98-107) Carbon Dioxide Level 22 mmol/L (21-32) 25 mmol/L (21-32) Anion Gap 16 (6-14) 12 (6-14) Blood Urea Nitrogen 9 mg/dL (7-20) 10 mg/dL (7-20) Creatinine 0.8 mg/dL (0.6-1.0) 0.8 mg/dL (0.6-1.0) Estimated GFR (Cockcroft-Gault) 109.6 109.6 BUN/Creatinine Ratio 11 (6-20) 13 (6-20) Glucose Level 76 mg/dL (70-99) 75 mg/dL (70-99) Calcium Level 9.4 mg/dL (8.5-10.1) 9.2 mg/dL (8.5-10.1) Total Bilirubin 0.5 mg/dL (0.2-1.0) 0.8 mg/dL (0.2-1.0) Aspartate Amino Transf (AST/SGOT) 10 U/L (15-37) 10 U/L (15-37) Alanine Aminotransferase (ALT/SGPT) 15 U/L (14-59) 15 U/L (14-59) Alkaline Phosphatase 52 U/L (46-116) 46 U/L (46-116) Total Protein 7.7 g/dL (6.4-8.2) 7.6 g/dL (6.4-8.2) Albumin 4.4 g/dL (3.4-5.0) 4.1 g/dL (3.4-5.0) Albumin/Globulin Ratio 1.3 (1.0-1.7) 1.2 (1.0-1.7) Laboratory Tests Test 04/18/21 18:05 04/18/21 20:40 04/19/21 08:15 Urine Collection Type Unknown Urine Color Radha Urine Clarity Cloudy Urine pH 5.5 (<5.0-8.0) Urine Specific [place] >=1.030 (1.000-1.030) Urine Protein 30 mg/dL (NEG-TRACE) Urine Glucose (UA) Negative mg/dL (NEG) Urine Ketones (Stick) >=80 mg/dL (NEG) Urine Blood Large (NEG) Urine Nitrite Negative (NEG) Urine Bilirubin Small (NEG) Urine Urobilinogen Dipstick 0.2 mg/dL (0.2 mg/dL) Urine Leukocyte Esterase Small (NEG) Urine RBC 3-5 /HPF (0-2) Urine WBC 20-40 /HPF (0-4) Urine Squamous Epithelial Cells Many /LPF Urine Amorphous Sediment Present /HPF Urine Bacteria Few /HPF (0-FEW) Urine Mucus Marked /LPF Urine Test Positive (NEG) White Blood Count 11.0 x10^3/uL (4.0-11.0) 7.4 x10^3/uL (4.0-11.0) Red Blood Count 4.75 x10^6/uL (3.50-5.40) 4.66 x10^6/uL (3.50-5.40) Hemoglobin 14.2 g/dL (12.0-15.5) 14.0 g/dL (12.0-15.5) Hematocrit 43.6 % (36.0-47.0) 42.3 % (36.0-47.0) Mean Corpuscular Volume 92 fL (79-100) 91 fL (79-100) Mean Corpuscular Hemoglobin 30 pg (25-35) 30 pg (25-35) Mean Corpuscular Hemoglobin Concent 33 g/dL (31-37) 33 g/dL (31-37) Red Cell Distribution Width 13.4 % (11.5-14.5) 12.9 % (11.5-14.5) Platelet Count 211 x10^3/uL (140-400) 214 x10^3/uL (140-400) Neutrophils (%) (Auto) 60 % (31-73) 61 % (31-73) Lymphocytes (%) (Auto) 30 % (24-48) 27 % (24-48) Monocytes (%) (Auto) 8 % (0-9) 11 % (0-9) Eosinophils (%) (Auto) 1 % (0-3) 1 % (0-3) Basophils (%) (Auto) 1 % (0-3) 1 % (0-3) Neutrophils # (Auto) 6.6 x10^3/uL (1.8-7.7) 4.5 x10^3/uL (1.8-7.7) Lymphocytes # (Auto) 3.3 x10^3/uL (1.0-4.8) 2.0 x10^3/uL (1.0-4.8) Monocytes # (Auto) 0.9 x10^3/uL (0.0-1.1) 0.8 x10^3/uL (0.0-1.1) Eosinophils # (Auto) 0.1 x10^3/uL (0.0-0.7) 0.1 x10^3/uL (0.0-0.7) Basophils # (Auto) 0.1 x10^3/uL (0.0-0.2) 0.0 x10^3/uL (0.0-0.2) Maternal Serum HCG Beta Subunit 269 mIU/mL (0-5) Sodium Level 143 mmol/L (136-145) 142 mmol/L (136-145) Potassium Level 3.5 mmol/L (3.5-5.1) 3.8 mmol/L (3.5-5.1) Chloride Level 105 mmol/L (98-107) 105 mmol/L (98-107) Carbon Dioxide Level 22 mmol/L (21-32) 25 mmol/L (21-32) Anion Gap 16 (6-14) 12 (6-14) Blood Urea Nitrogen 9 mg/dL (7-20) 10 mg/dL (7-20) Creatinine 0.8 mg/dL (0.6-1.0) 0.8 mg/dL (0.6-1.0) Estimated GFR (Cockcroft-Gault) 109.6 109.6 BUN/Creatinine Ratio 11 (6-20) 13 (6-20) Glucose Level 76 mg/dL (70-99) 75 mg/dL (70-99) Calcium Level 9.4 mg/dL (8.5-10.1) 9.2 mg/dL (8.5-10.1) Total Bilirubin 0.5 mg/dL (0.2-1.0) 0.8 mg/dL (0.2-1.0) Aspartate Amino Transf (AST/SGOT) 10 U/L (15-37) 10 U/L (15-37) Alanine Aminotransferase (ALT/SGPT) 15 U/L (14-59) 15 U/L (14-59) Alkaline Phosphatase 52 U/L (46-116) 46 U/L (46-116) Total Protein 7.7 g/dL (6.4-8.2) 7.6 g/dL (6.4-8.2) Albumin 4.4 g/dL (3.4-5.0) 4.1 g/dL (3.4-5.0) Albumin/Globulin Ratio 1.3 (1.0-1.7) 1.2 (1.0-1.7) Brief Hospital Course Ms. Rosenthal is a 20 old female, admit for vaginal bleeing in pregnany without pain, 3cm mass, quant going down prior ectopic no pain DC home, Discharge Information Condition at Discharge: Improved Follow Up: Weeks Disposition/Orders: D/C to Home Scheduled Pnv With Ca,No.72/Iron/Fa ( Plus Tablet) 1 Each Tablet, 1 TAB PO DAILY for in case you get for 100 Days, #100 Ref 0 Prescribed by: ОЛЬГА TELLES on 04/19/21 1129 Miscellaneous Medications Info (No Known Medications Prior To Admisstion) Each, 1 EACH MC, (Reported) Entered as Reported by: TAVO VALDOVINOS on 01/22/18 2150 Discontinued Medications Cefpodoxime Proxetil (Cefpodoxime Proxetil) 200 Mg Tablet, 1 TAB PO BID for 10 Days, #20 Prescribed by: AUGIE LOOMIS DO on 04/06/21 1147 Naproxen (Naproxen) 500 Mg Tablet, 500 MG PO BID, #60 Prescribed by: KAITY MCFARLAND on 01/23/18 1156 Ondansetron (Ondansetron Odt) 4 Mg Tab.rapdis, 1 TAB PO PRN Q6-8HRS, #20 Prescribed by: AUGIE LOOMIS DO on 04/06/21 1207 Oxycodone/Apap 5-325 (Percocet 5-325 Mg Tablet ) 1 Each Tablet, 1-2 TAB PO Q4- 6HRS, #40 Prescribed by: KAITY MCFARLAND on 01/23/18 1156 Patient Instructions Patient Instructions A/D same Justicifation of Admission Dx: Justifications for Admission: Justification of Admission Dx: ОЛЬГА Pulido MD Apr 19, 2021 16:16
== END 2021-04-19 13:00 | disposition home or self-care (01) | DRG 833 ==
LOC: ER 15:49 → 3 NORTH 21:41
PROVIDERS: ADMIT Internal Medicine; ATTEND Internal Medicine
DX: O00.202 Left ovarian pregnancy without intrauterine pregnancy (principal); O46.90 Antepartum hemorrhage, unspecified, unspecified trimester; Z87.891 Personal history of nicotine dependence; N83.202 Unspecified ovarian cyst, left side
CPT/HCPCS: 36415; 76801; 76817; 80053; 81001; 81025; 84702; 85025; 87086; 96372; J9250; 99285-25; G0378

== ENCOUNTER 2021-07-15 12:55 | Emergency (ER) | payer SELFPAY ==
[~2021-07-15] VITALS: Ht 154.9 cm; Wt 59.1 kg
[~2021-07-15 12:55] MED LIST changes: +PNV1TABL31 PO
[2021-07-15 13:55] LABS: INFLUENZA A PATIENT NEGATIVE (NEGATIVE); INFLUENZA B PATIENT NEGATIVE (NEGATIVE)
[2021-07-15 14:00] LABS: BILIRUBIN,URINE NEGATIVE (NEG); CLARITY,URINE CLOUDY; COLOR,URINE YELLOW; NITRITE,URINE NEGATIVE (NEG); PH,URINE 8.5 (<5.0-8.0); PROTEIN,URINE NEGATIVE (NEG-TRACE)
[2021-07-15 14:02] LABS: AMORPHOUS SEDIMENT,UR PRESENT /HPF; BACTERIA,URINE 0 /HPF (0-FEW); RBC,URINE 0 /HPF (0-2); WBC,URINE 0 /HPF (0-4)
--- NOTE | 2021-07-15 14:38 | RAD ---
Single AP view of the chest. Comparison: None. Indication: Cough Findings: The heart is not enlarged. There is no pneumothorax or effusion. No air space or interstitial diseas e. Impression: 1. No acute cardiopulmonary process. Electronically signed by: Sonny Ferreira MD (07/15/2021 2:36 PM) [facility]
[2021-07-15] MEDS ORDERED: ALBU2.5V8 IH (15:17)
[2021-07-15] MEDS ORDERED: AZIT500T PO (15:17)
--- NOTE | 2021-07-15 15:17 | PHYS DOC ---
Past Medical History Past Medical History: No Pertinent History Additional Past Medical Histor: ECTOPIC Past Surgical History: Other Additional Past Surgical Histo: ECTOPIC Smoking Status: Never Smoker Alcohol Use: None Drug Use: Marijuana Adult General Chief Complaint Chief Complaint: FLU SYMPTOM HPI HPI Patient is a 20 year old female with cough and mid back pain for several days. Patient is not had a fever that she is aware of but has had intermittent episodes of fatigue and chills. No rash, headache or mental status changes. No shortness of breath or chest pain. She is not had any nausea, vomiting or abdominal pain either. No sick contacts, patient has not been vaccinated for Covid. Review of Systems Review of Systems Constitutional: Denies fever Eyes: Denies change in visual acuity or eye pain HENT: Denies sore throat Respiratory: Denies shortness of breath Cardiovascular: Denies chest pain GI: Denies abd pain : Denies dysuria Musculoskeletal: Denies back or extremity injury Integument: Denies rash or skin lesions Neurologic: Denies headache, focal weakness or sensory changes All other systems were reviewed and found to be within normal limits, except as documented in this note. Allergies Allergies Allergies Coded Allergies Type Severity Reaction Last Updated Verified No Known Drug Allergies 04/18/21 No Physical Exam Physical Exam Constitutional: Well developed, well nourished, no acute distress, non-toxic appearance. HENT: Normocephalic, atraumatic, bilateral external ears normal, mucosa moist, nose normal. Eyes: EOMI, conjunctiva normal, no discharge. Neck: Normal range of motion, supple, no stridor, no meningeal signs. Cardiovascular: Regular rate and rhythm Lungs & Thorax: Bilateral breath sounds clear to auscultation Abdomen: Soft, no tenderness or obvious masses, mild CVA tenderness bilaterally Skin: Warm, dry, no erythema, no rash. Extremities: No tenderness, no cyanosis, no clubbing, ROM intact, no edema. Neurologic: Alert and oriented, normal motor function, normal sensory function, no focal deficits noted. Psychologic: Affect normal, judgement normal, mood normal. Current Patient Data Vital Signs Vital Signs Date Time Temp Pulse Resp B/P (MAP) Pulse Ox O2 Delivery O2 Flow Rate FiO2 07/15/21 13:16 99.8 92 18 113/64 (80) 97 Room Air 99.8 Lab Values Laboratory Tests Test 07/15/21 13:19 07/15/21 13:20 07/15/21 13:28 Urine Collection Type Void Urine Color Yellow Urine Clarity Cloudy Urine pH 8.5 (<5.0-8.0) Urine Specific [place] 1.020 (1.000-1.030) Urine Protein Negative mg/dL (NEG-TRACE) Urine Glucose (UA) Negative mg/dL (NEG) Urine Ketones (Stick) 80 mg/dL (NEG) Urine Blood Negative (NEG) Urine Nitrite Negative (NEG) Urine Bilirubin Negative (NEG) Urine Urobilinogen Dipstick 1.0 mg/dL (0.2 mg/dL) Urine Leukocyte Esterase Negative (NEG) Urine RBC 0 /HPF (0-2) Urine WBC 0 /HPF (0-4) Urine Squamous Epithelial Cells Few /LPF Urine Amorphous Sediment Present /HPF Urine Bacteria 0 /HPF (0-FEW) Urine Mucus Slight /LPF Influenza Type A Antigen Negative (NEGATIVE) Influenza Type B Antigen Negative (NEGATIVE) SARS-CoV-2 Antigen (Rapid) Negative (NEGATIVE) POC Urine HCG, Qualitative Hcg negative (Negative) EKG EKG [] Radiology/Procedures Radiology/Procedures [] Impressions: PATIENT: GABY ORDONEZ DACCOUNT: [id number] : 2000 LOCATION: ER AGE: 20 SEX: F EXAM STATUS: PRE ER ORD. PHYSICIAN: CHAITANYA JACOBSEN MD REASON: cough PROCEDURE: CHEST AP ONLY Single AP view of the chest. Comparison: None. Indication: Cough Findings: The heart is not enlarged. There is no pneumothorax or effusion. No air space or interstitial disease. Impression: 1. No acute cardiopulmonary process. Electronically signed by: Jc Bae MD (07/15/2021 2:36 PM) [facility] DICTATED and SIGNED BY: JC BAE MD DATE: 07/15/21 [id number] 0 Course & Med Decision Making Course & Med Decision Making Pertinent Labs and Imaging studies reviewed. (See chart for details) [] This is a 20-year-old female with upper respiratory symptoms. Covid and flu tests were negative. She did have some flank pain but urinalysis was unremarkable as well. We will start patient on Zithromax and albuterol and have her follow-up with her primary care physician, she is stable for discharge at this time. Dragon Disclaimer Dragon Disclaimer This electronic medical record was generated, in whole or in part, using a voice recognition dictation system. Departure Departure Impression: Primary Impression: Upper respiratory infection Disposition: HOME / SELF CARE / HOMELESS Condition: STABLE Referrals: NO PCP (PCP) Patient Instructions: Upper Respiratory Infection, Adult Scripts Albuterol Sulfate (PROAIR HFA INHALER) 8.5 Gm Hfa.aer.ad 2 PUFF IH PRN Q4-6HRS PRN for wheezing for 21 Days, #1 INHALER 0 Refills Prov: CHAITANYA JACOBSEN MD 07/15/21 Azithromycin (ZITHROMAX) 500 Mg Tablet 500 MG PO DAILY for ANTI-BIOTIC for 3 Days, #3 TAB 0 Refills Prov: CHAITANYA JACOBSEN MD 07/15/21 CHAITANYA JACOBSEN MD Jul 15, 2021 15:17
[2021-07-15 15:22] VITALS: BP 119/77
--- NOTE | 2021-07-16 16:11 | NUR ---
IP: Informed pt of positive covid test and the need to quarantine for 10 days. Pt verbalized understanding.
== END 2021-07-15 15:26 | disposition home or self-care (01) ==
LOC: ER 12:55
DX: U07.1 COVID-19 (principal); J06.9 Acute upper respiratory infection, unspecified
CPT/HCPCS: 71045; 81001; 81025; 87428; 99284; C9803; U0003